=== PATIENT | male | born 1960 | race Caucasian/White ===

== ENCOUNTER → 2020-11-28 | Outpatient (CLI) | payer OTHER | LOC: KOH-I 08:41 | DX: M25.541 Pain in joints of right hand (principal); M25.542 Pain in joints of left hand; M19.042 Primary osteoarthritis, left hand; M19.041 Primary osteoarthritis, right hand | CPT/HCPCS: 73130 ==

== ENCOUNTER → 2021-03-16 | Outpatient (CLI) | payer OTHER | LOC: KOH-I 09:08 | DX: M79.671 Pain in right foot (principal); R93.6 Abnormal findings on diagnostic imaging of limbs | CPT/HCPCS: 73630 ==

== ENCOUNTER → 2021-03-21 | Outpatient (CLI) | payer OTHER | LOC: KOH-I 14:53 | DX: Z01.818 Encounter for other preprocedural examination (principal); L94.2 Calcinosis cutis; R22.41 Localized swelling, mass and lump, right lower limb; M79.671 Pain in right foot | CPT/HCPCS: 73700; 93926 ==

== ENCOUNTER → 2021-05-09 | Outpatient (CLI) | payer OTHER ==
[~2021-05-09] MED LIST: CRESTOR40 MG PO; ECOTRIN81 MG PO; FAMOTIDINE40 MG PO; IRBESARTAN75 MG PO; JARDIANCE25 MG PO; LANTUS SOL100 UNIT/1 SQ; LEVOTHYROXINE100 MC2 PO; METOPROLOL TART50 MG PO; MONTELUKAST SOD10 MG PO; NEURONTIN800 MG PO; OMEPRAZOLE40 MG PO; OZEMPIC1 MG/0.75 SQ; TRAMADOL HCL100 MG PO; VITAMIN D350 MCG PO
[2021-05-09 08:57] LABS: HEMOGLOBIN 13.1 gm/dl (14.0-17.5); RED BLOOD COUNT 4.54 M/UL (4.20-5.50); WHITE BLOOD COUNT 7.3 K/UL (4.5-11.0)
[2021-05-09 09:15] LABS: BUN/CREATININE RATIO 16 (0-10)
== END ==
LOC: OPSV2 07:43
PROVIDERS: Podiatrist Foot & Ankle Surgery
DX: Z01.818 Encounter for other preprocedural examination (principal); R22.41 Localized swelling, mass and lump, right lower limb
CPT/HCPCS: 36415; 80048; 85027; 93005

== ENCOUNTER → 2021-05-17 | Day surgery (SDC) | payer OTHER ==
[~2021-05-17] VITALS: Ht 175.3 cm; Wt 89.8 kg
== END | disposition home or self-care (01) ==
LOC: OR 05:43
DX: R22.41 Localized swelling, mass and lump, right lower limb (principal); M79.2 Neuralgia and neuritis, unspecified; G89.29 Other chronic pain; M19.90 Unspecified osteoarthritis, unspecified site; I10 Essential (primary) hypertension; E11.42 Type 2 diabetes mellitus with diabetic polyneuropathy; K21.9 Gastro-esophageal reflux disease without esophagitis; E55.9 Vitamin D deficiency, unspecified; J30.9 Allergic rhinitis, unspecified; N62 Hypertrophy of breast; D75.1 Secondary polycythemia; Z79.4 Long term (current) use of insulin; E66.9 Obesity, unspecified; Z79.899 Other long term (current) drug therapy; Z20.822 Contact with and (suspected) exposure to COVID-19
CPT/HCPCS: 73650; 82962; 87070; 87205; J0690; J1100; J1885; J2001; J2250; J2370; J2405; J2704; J2795; J3010; J3370; J7120; Q4133